=== PATIENT | female | born 2000 | race Caucasian/White ===

== ENCOUNTER 2023-05-29 16:26 | Inpatient (IN) | payer OTHER ==
[2023-05-29] MEDS ORDERED: BUTORPHANOL TARTRATE 2 MG/ML VIAL IVPB PRN (17:31)
[2023-05-29] MEDS ORDERED: PROMETHAZINE HCL 25 MG/1 ML VIAL IVPB PRN (17:31)
[2023-05-29 17:35] VITALS: BMI 33.6
[2023-05-29] MEDS: LACTATED RINGERS SOLUTION 1,000 ML/1,000 ML INFUS.BAG IV SCH (18:04)
[2023-05-29 18:22] LABS: BASO % 0.4 % (0-2.0); EOS % 1.4 % (0-4.5); HEMATOCRIT 36.7 % (32.4-45.2); HEMOGLOBIN 12.3 GM/dL (10.7-15.3); MCH 28.2 pg (25.7-33.7); MCHC 33.4 g/dl (32.0-36.0); MEAN CELL VOLUME 84.4 fl (80-96); MEAN PLT VOLUME 9.2 fl (7.5-11.1); MONO % 13.6 % (3.8-10.2); NEUT % 63.6 % (42.8-82.8); PLATELET COUNT 261 10^3/uL (134-434); RBC 4.34 M/mm3 (3.60-5.2); RDW 15.1 % (11.6-15.6); WHITE BLOOD COUNT 6.5 K/mm3 (4.0-10.0)
[2023-05-29 18:28] LABS: PROTHROMBIN TIME (PATIENT) 11.6 SEC (9.7-13.0)
[2023-05-29] MEDS ORDERED: PENICILLIN G POTASSIUM 5,000,000 UNIT/250 ML BAG IVPB ONE (18:31)
[2023-05-29 18:46] LABS: POTASSIUM 4.6 mmol/L (3.5-5.1)
[2023-05-29 18:48] LABS: CALCIUM 9.4 mg/dL (8.5-10.1)
[2023-05-29 18:49] LABS: BLOOD UREA NITROGEN 9.7 mg/dL (7-18)
[2023-05-29] MEDS: PENICILLIN G POTASSIUM 5,000,000 PRE-DOCK IN NS 250 ML IVPB ONE (18:49)
[2023-05-29 18:51] LABS: CREATININE 0.4 mg/dL (0.55-1.3)
[2023-05-29] MEDS: DINOPROSTONE 10 MG VAGINAL SUPPOSITORY VG ONE (20:05)
[2023-05-29] MEDS ORDERED: PENICILLIN G POTASSIUM 5,000,000 (5Mm) UNIT VIAL IVPB SCH (22:00)
[2023-05-29] MEDS: PENICILLIN G POTASSIUM 2,500,000 UNIT in SODIUM CHLORIDE 100 ML IVPB SCH (22:30)
[2023-05-30] MEDS ORDERED: OXYTOCIN 30 UNITS in 0.9% NS 30 UNIT/500 ML INFUS.BAG IVPB ONE (04:56)
[2023-05-30] MEDS: OXYTOCIN 30 UNITS in 0.9% NS 30 UNIT/500 ML INFUS.BAG IVPB SCH (05:00)
[2023-05-30] MEDS ORDERED: OXYTOCIN 30 UNITS in 0.9% NS 30 UNIT/500 ML INFUS.BAG IVPB SCH (12:30)
[2023-05-30] MEDS ORDERED: FENTANYL/BUPIVACAINE/NS/PF - PCEA - 50 ML DISP.SYRIN EP ONE ×3 (15:36→21:53)
[2023-05-30] MEDS ORDERED: NALOXONE HCL 0.4 MG/ML VIAL IVPUSH PRN (15:45)
[2023-05-30] MEDS ORDERED: LIDO 2%/EPI 1:200000 PRESRVFRE (20 ML SDVIAL) ONE (15:46)
[2023-05-30] MEDS ORDERED: BUPIVACAINE HCL/PF 0.25% (2.5MG/ML) 10 ML VIAL ONE (15:46)
[2023-05-30] MEDS: FENTANYL/BUPIVACAINE/NS/PF - PCEA - 50 ML DISP.SYRIN EP SCH (16:06)
[2023-05-30] MEDS ORDERED: FENTANYL CITRATE/PF 50 MCG/ML VIAL ONE ×2 (18:16→22:08)
[2023-05-30] MEDS ORDERED: OXYTOCIN 20 UNITS in 0.9% NS 20 UNIT/1,000 ML INFUS.BAG IV ONE (21:36)
[2023-05-30] MEDS: OXYTOCIN 20 UNITS in 0.9% NS 20 UNIT/1,000 ML INFUS.BAG IV SCH (23:06)
[2023-05-30 23:08] LABS: CORD BASE EXCESS -8.8 mmol/L (0-2); CORD BASE EXCESS -9.8 mmol/L (0-2); CORD HCO3 17.5 mmHg (20-29); CORD HCO3 21.5 mmHg (20-29); CORD PCO2 39.4 mmHg (30-78); CORD PCO2 71.7 mmHg (30-78); CORD pH 7.095 (7.14-7.44); CORD pH 7.266 (7.14-7.44)
[2023-05-30] MEDS ORDERED: MISOPROSTOL 200 MCG TABLET ONE (23:08)
[2023-05-30] MEDS: MISOPROSTOL 200 MCG TABLET PR ONE (23:09)
[2023-05-31] MEDS ORDERED: BISACODYL 10 MG SUPP.RECT RC PRN (00:06)
[2023-05-31] MEDS ORDERED: BENZOCAINE 28 GM HEMORRHOIDAL OINTMENT TP PRN (00:06)
[2023-05-31] MEDS ORDERED: METHYLERGONOVINE MALEATE 0.2 MG/1 ML AMP IM PRN (00:06)
[2023-05-31] MEDS ORDERED: MISOPROSTOL 200 MCG TABLET PR ONE (00:44)
[2023-05-31] MEDS ORDERED: OXYTOCIN 20 UNITS in 0.9% NS 20 UNIT/1,000 ML INFUS.BAG IV ONE (01:15)
[2023-05-31] MEDS: OXYTOCIN 20 UNITS in 0.9% NS 1000 ML INFUS.BAG IV ONE (02:00)
[2023-05-31] MEDS: ACETAMINOPHEN 325 MG TABLET (FP) PO PRN (05:59)
[2023-05-31] MEDS: IBUPROFEN 600 MG TABLET (FP) PO PRN (16:28)
[2023-05-31] MEDS: BENZOCAINE 20% 57 GM BOTTLE TP PRN (16:33)
[2023-06-01] MEDS: WITCH HAZEL 50% (TUCKS) 40 PAD/JAR PAD TP PRN (08:30)
[2023-06-01 09:41] VITALS: BP 122/81; PULSE 92; RESP 18; TEMP 98.1
[2023-06-01 09:52] LABS: BASO % 0.4 % (0-2.0); EOS % 1.2 % (0-4.5); HEMATOCRIT 30.1 % (32.4-45.2); HEMOGLOBIN 10.1 GM/dL (10.7-15.3); LYMPH % 28.7 % (8-40); MCH 28.2 pg (25.7-33.7); MCHC 33.5 g/dl (32.0-36.0); MEAN CELL VOLUME 84.3 fl (80-96); MEAN PLT VOLUME 9.2 fl (7.5-11.1); MONO % 10.5 % (3.8-10.2); NEUT % 59.2 % (42.8-82.8); PLATELET COUNT 199 10^3/uL (134-434); RBC 3.57 M/mm3 (3.60-5.2); RDW 15.3 % (11.6-15.6); WHITE BLOOD COUNT 7.9 K/mm3 (4.0-10.0)
[2023-06-01] MEDS ORDERED: SENNOSIDES/DOCUSATE COMBO (SENNA PLUS) TABLET (UD) PO PRN (22:00)
== END 2023-06-01 14:10 | disposition home or self-care (01) | DRG 560 ==
LOC: JLDR 16:26 → J3W 05-31 02:37
PROVIDERS: ADMIT Obstetrics & Gynecology; ATTEND Obstetrics & Gynecology
PROC: 10E0XZZ Delivery of Products of Conception, External Approach (ICD-10-PCS; principal; 2023-05-30)
PROC: 0KQM0ZZ Repair Perineum Muscle, Open Approach (ICD-10-PCS; 2023-05-30)
PROC: 3E033VJ Introduction of Other Hormone into Peripheral Vein, Percutaneous Approach (ICD-10-PCS; 2023-05-30)
PROC: 10907ZC Drainage of Amniotic Fluid, Therapeutic from Products of Conception, Via Natural or Artificial Opening (ICD-10-PCS; 2023-05-30)
DX: O70.1 Second degree perineal laceration during delivery (principal); O66.0 Obstructed labor due to shoulder dystocia; O99.824 Streptococcus B carrier state complicating childbirth; O99.284 Endocrine, nutritional and metabolic diseases complicating childbirth; E74.21 Galactosemia; Z3A.39 39 weeks gestation of pregnancy; Z37.0 Single live birth
CPT/HCPCS: 36415; 36600; 80048; 82803; 85025; 85610; 85730; 86780; 86850; 86900; 86901; 87340